=== PATIENT | male | born 1960 | race African-American/Black ===

== ENCOUNTER 2022-12-07 17:37 | Emergency (ER) | payer MEDICAID, OTHER ==
[~2022-12-07] VITALS: Ht 172.7 cm; Wt 105.0 kg
[2022-12-07 18:04] VITALS: BP 129/87; PULSE 92; RESP 18; TEMP 98; O2SAT 99
[2022-12-07] MEDS ORDERED: LIDOCAINE HCL/EPINEPHRINE 1%-EPI 1:100,000 20 ML VIAL INFIL ONE (22:45)
[2022-12-07] MEDS ORDERED: BACITRACIN ZINC OINT UDPKT TOP ONE (22:45)
[2022-12-08] MEDS ORDERED: CLINDAMYCIN HCL 150MG CAPSULE PO ONE (00:15)
[2022-12-08] MEDS ORDERED: CLIN-194 MT (00:16)
[2022-12-08] MEDS ORDERED: NAPR-420 MT (00:16)
[2022-12-08] MEDS ORDERED: NEOM28.37 TP (00:16)
== END 2022-12-08 00:57 | disposition home or self-care (01) ==
LOC: ER 17:45
DX: L02.212 Cutaneous abscess of back [any part, except buttock and flank] (principal)
CPT/HCPCS: 99283; 10060; J3490